=== PATIENT | female | born 1975 | race American Indian/Alaskan Native ===

== ENCOUNTER 2020-11-20 15:16 | Emergency (ER) | payer BC ==
[2020-11-20] MEDS ORDERED: ACETAMINOPHEN 500 MG TAB PO ONE ×2 (17:18→22:30)
--- NOTE | 2020-11-20 17:21 | Event Note ---
ED Screening Note Date of service: 11/20/20 Time: 17:19 ED Screening Note: Patient is a A0 45-year-old -[place] female with past medical history of uterine fibroids who presents to the ED with complaint of acute onset persistent heavy vaginal bleeding and severe pelvic pain for the last 1 week, worse in the last 2 days. Patient states that she was initially evaluated by her [employer] physician Dr. Nixon who advised her to come to the ED for further evaluation due to heavy vaginal bleeding and pain. Patient denies dysuria, urinary frequency and urgency, vaginal discharge, nausea, vomiting, fever, chills, dysuria or diarrhea This initial assessment/diagnostic orders/clinical plan/treatment(s) is/are subject to change based on patients health status, clinical progression and re- assessment by fellow clinical providers in the ED. Further treatment and workup at subsequent clinical providers discretion. Patient/guardian urged not to elope from the ED as their condition may be serious if not clinically assessed and managed. Initial orders include: CBC, CMP, UA, hCG serum, pelvic ultrasound
[2020-11-20 17:40] LABS: Basophils # (Auto) 0.1 K/mm3 (0.0-0.1); Eosinophils # (Auto) 0.2 K/mm3 (0.0-0.4); Eosinophils % (Auto) 1.7 % (0.0-4.3); Hematocrit 30.6 % (30.3-42.9); Hemoglobin 10.2 gm/dl (10.1-14.3); Lymphocytes # (Auto) 2.2 K/mm3 (1.2-5.4); Lymphocytes % (Auto) 25.2 % (13.4-35.0); Mean Corpuscular HGB Conc 33 % (30-34); Mean Corpuscular Volume 89 fl (79-97); Monocytes # (Auto) 0.5 K/mm3 (0.0-0.8); Monocytes % (Auto) 5.7 % (0.0-7.3); Platelet Count 324 K/mm3 (140-440); Red Blood Count 3.43 M/mm3 (3.65-5.03); Red Cell Distribution Width 13.7 % (13.2-15.2)
[2020-11-20 18:01] LABS: Bacteria,Urine 1+ /HPF (Negative); Bilirubin,Urine NEG (Negative); Blood,Urine LG (Negative); Color,Urine Red (Yellow); Urobilinogen,Urine < 2.0 mg/dL (<2.0)
[2020-11-20 18:03] LABS: Alanine Aminotransferase 16 units/L (7-56); Blood Urea Nitrogen 11 mg/dL (7-17); Hemolysis Index 11
[2020-11-20 18:15] LABS: RBC,Urine > 182.0 /HPF (0.0-6.0)
[2020-11-20 18:18] LABS: BUN/Creatinine Ratio 16
--- NOTE | 2020-11-20 20:33 | Ultrasound Report ---
ULTRASOUND PELVIS INDICATION / CLINICAL INFORMATION: Pelvic pain - vagina bleeding. TECHNIQUE: Transabdominal. Duplex Color Doppler used: Yes. COMPARISON: None available FINDINGS: Technically difficult examination secondary to overlying bowel. UTERUS: Measures 12.4 x 7.3 x 7.8 cm. Accurate endometrial thickness is unable to be obtained on this examination. Multiple heterogeneously echogenic foci are visualized at the uterine fundus measuring up to 5.8 cm. RIGHT ADNEXA: No significant ovarian cyst or mass. Normal color Doppler blood flow. LEFT ADNEXA: No significant ovarian cyst or mass. Normal color Doppler blood flow. URINARY BLADDER: No significant abnormality. FREE FLUID: None. ADDITIONAL FINDINGS: None. IMPRESSION: 1. Mildly enlarged uterus with multiple uterine fibroids. No acute abnormality. 2. Endometrium was difficult to visualize on today's examination. Signer Name: Coy Vivas MD Signed: 11/20/2020 8:28 PM Workstation Name: [id number]
--- NOTE | 2020-11-20 21:39 | Emergency Department Report ---
ED General Adult HPI - General Chief complaint: Urogenital-Female Stated complaint: HEAVY BLEEDING Time Seen by Provider: 11/20/20 21:37 Source: patient Mode of arrival: Ambulatory Limitations: No Limitations - History of Present Illness Initial comments: 45-year-old female patient with history of endometriosis and uterine fibroids status post myomectomy presents to the emergency department with complaints of painful vaginal bleeding for 2 days. Her last menstrual cycle was 1 month ago. States she has used approximately 7 tampons in the last 12 hours. Patient has been experiencing ongoing issues with menorrhagia. She was prescribed Orilissa by her alarm security or surveillance monitor, but did not take the medication due to concern about possible side effects. She contacted her alarm security or surveillance monitor today, recommended she come to the emergency department for further evaluation. No recent fall, trauma, or injury. Patient is not anticoagulated. Patient is not . Denies fever, chills, nausea, vomiting, diarrhea, constipation, painful urination, chest pain, shortness of breath, syncope, dizziness. Denies all other complaints at this time. - Related Data Home Medications Medication Instructions Recorded Confirmed Last Taken Multivitamin Tab [Multiple Vitamin 1 each PO QDAY 09/10/15 09/10/15 Unknown TAB (Theragran)] lisinopriL [Lisinopril] 10 mg PO DAILY 09/10/15 09/10/15 Unknown Previous Rx's Medication Instructions Recorded Last Taken Type Aspirin EC [Aspirin Enteric Coated 325 mg PO QDAY #30 tablet. 06/17/14 Unknown Rx TAB] carvediloL [Coreg] 6.25 mg PO BID #60 tablet 06/17/14 Unknown Rx Naproxen 500 mg PO BID #20 tablet 11/20/20 Unknown Rx Allergies Allergy/AdvReac Type Severity Reaction Status Date / Time lisinopril Allergy Swelling Verified 11/20/20 17:12 ED Review of Systems ROS: Stated complaint: HEAVY BLEEDING Other details as noted in HPI Other: GENERAL: Negative for fever, chills, weight change, anorexia, fatigue. ENT: Negative for ear pain, difficulty hearing, sore throat, nasal congestion, epistaxis. CARDIOVASCULAR: Negative for chest pain, palpitations, lower extremity swelling. PULMONARY: Negative for cough, dyspnea, wheezing, orthopnea, cyanosis. GASTROINTESTINAL: Negative for abdominal pain, nausea, vomiting, diarrhea, constipation. GENITOURINARY: Positive for pelvic pain and vaginal bleeding. MUSCULOSKELETAL: Negative for joint pain, joint swelling, myalgias, back pain, neck pain. NEUROLOGICAL: Negative for headache, seizure, syncope, paresthesias, weakness. INTEGUMENTARY: Negative for erythema, rash, diaphoresis, laceration, ecchymosis. HEMATOLOGICAL: Negative for hemoptysis, hematemesis, hematochezia, hematuria. PSYCHIATRIC: Negative for hallucinations, suicidal ideation, homicidal ideation, anxiety, depression. ED Past Medical Hx - Past Medical History Hx Hypertension: Yes (x 1 year) Hx Congestive Heart Failure: Yes Hx Diabetes: Yes (GESTATIONAL) Hx Deep Vein Thrombosis: No Hx Renal Disease: No Hx Sickle Cell Disease: No Hx Seizures: No Hx Asthma: No Hx COPD: No Hx HIV: No - Surgical History Additional Surgical History: Biliary Atresia Surgery 1973, 1974, 2003 ,2005. LAPROSCOPY. MYOMECTOMY - Social History Smoking Status: Never Smoker Substance Use Type: None - Medications Home Medications: Home Medications Medication Instructions Recorded Confirmed Last Taken Type Aspirin EC [Aspirin Enteric Coated 325 mg PO QDAY #30 tablet. 06/17/14 Unknown Rx TAB] carvediloL [Coreg] 6.25 mg PO BID #60 tablet 06/17/14 09/10/15 Unknown Rx Multivitamin Tab [Multiple Vitamin 1 each PO QDAY 09/10/15 09/10/15 Unknown History TAB (Theragran)] lisinopriL [Lisinopril] 10 mg PO DAILY 09/10/15 09/10/15 Unknown History Naproxen 500 mg PO BID #20 tablet 11/20/20 Unknown Rx ED Physical Exam - General Limitations: No Limitations - Other Other exam information: General: Awake and alert. No acute distress. Head: Atraumatic, normocephalic. Eyes: EOMI. Pupils are equal and round. Normal sclera and conjunctiva. ENT: Oral mucosa is moist. Normal pharyngeal exam. Neck: Supple. No lymphadenopathy. Pulmonary: No respiratory distress. Clear to auscultation bilaterally. Cardiac: Regular rate and rhythm. Pulses are palpable and equal bilaterally. No lower extremity cyanosis or edema. Skin: Warm and dry. No rashes. Abdomen: Soft, non-tender, non-protuberant. No guarding, rigidity, or rebound. Bowel sounds are normal. No organomegaly or masses noted. Back: Normal alignment. No CVA tenderness. Extremities: Symmetrical. Full range of motion intact. Neurological: Alert and oriented, appropriately interactive, no focal deficits. Psych: Cooperative. Appropriate mood and affect. Speech is evenly metered. Thoughts are logically construed. ED Course Vital Signs 11/20/20 17:15 Temperature 98.3 F Pulse Rate 76 Respiratory 18 Rate Blood Pressure 141/75 O2 Sat by Pulse 96 Oximetry ED Medical Decision Making - Lab Data Result diagrams: 11/20/20 17:36 11/20/20 17:36 - Radiology Data [facility] [address] [place] [address] Ultrasound Report Signed Patient: PALOMO MYERS MR#: [id number] : 1975 Acct:[id number] Age/Sex: 45 / F ADM Date: 11/20/20 Loc: ED Attending Dr: Ordering Physician: ADRIENNE POZO Date of Service: 11/20/20 Procedure(s): US pelvic complete Accession Number(s): [id number] cc: ADRIENNE POZO ULTRASOUND PELVIS INDICATION / CLINICAL INFORMATION: Pelvic pain - vagina bleeding. TECHNIQUE: Transabdominal. Duplex Color Doppler used: Yes. COMPARISON: None available FINDINGS: Technically difficult examination secondary to overlying bowel. UTERUS: Measures 12.4 x 7.3 x 7.8 cm. Accurate endometrial thickness is unable to be obtained on this examination. Multiple heterogeneously echogenic foci are visualized at the uterine fundus measuring up to 5.8 cm. RIGHT ADNEXA: No significant ovarian cyst or mass. Normal color Doppler blood flow. LEFT ADNEXA: No significant ovarian cyst or mass. Normal color Doppler blood flow. URINARY BLADDER: No significant abnormality. FREE FLUID: None. ADDITIONAL FINDINGS: None. IMPRESSION: 1. Mildly enlarged uterus with multiple uterine fibroids. No acute abnormality. 2. Endometrium was difficult to visualize on today's examination. Signer Name: Jean Vivas MD Signed: 11/20/2020 8:28 PM Workstation Name: [id number] Transcribed By: Dictated By: JEAN VIVAS III Electronically Authenticated By: JEAN VIVAS III Signed Date/Time: 11/20/202027 DD/ 25 TD/TT: - Medical Decision Making Differential diagnosis including but not limited to: ectopic , hemorrhagic shock, anemia, uterine fibroids, endometriosis On reevaluation, patient remains stable. Vital signs within normal limits. Hemoglobin is stable. Urine specimen shows hematuria without evidence of concomitant infection. Pelvic ultrasound obtained during medical screening exam shows multiple uterine fibroids. test is negative. There is no clinical indication for further diagnostic work-up on an emergent basis at this time. Patient will be discharged home with appropriate analgesics to follow-up with her alarm security or surveillance monitor as previously scheduled. Patient expressed understanding and is agreeable to plan of care. Strict return precautions provided. Repeat exam is unremarkable and benign. History, exam, diagnostic testing, and current condition do not suggest worrisome pathology to warrant further testing, continued ED treatment, admission, or surgical evaluation at this point. Given the low probability of a significant medical illness, it would be more likely to result in harm than benefit to perform further testing at this stage. Discussed findings, presumptive diagnosis, need for follow-up and specific signs/symptoms that should prompt immediate return to the emergency department. Instructions were explained in detail to the patient in addition to giving written discharge information. Patient expressed understanding and was given the opportunity to a sk questions, all of which were satisfactorily answered prior to discharge home. Critical care attestation.: If time is entered above; I have spent that time in minutes in the direct care of this critically ill patient, excluding procedure time. ED Disposition Clinical Impression: Uterine fibroid Qualifiers: Uterine leiomyoma location: unspecified location Qualified Code(s): D25.9 - Leiomyoma of uterus, unspecified Disposition: DC- TO HOME OR SELFCARE Is pt being admited?: No Does the pt Need Aspirin: No Condition: Stable Instructions: Uterine Fibroids, [id number] Additional Instructions: Take Tylenol every 4 hours as needed for pain. Take Naprosyn twice daily with food as needed for pain. Apply heat to affected area as needed for pain. Rest. Drink plenty of fluids. Follow-up with your alarm security or surveillance monitor next week. Call Monday to schedule an appointment. Return to the emergency department immediately for new or worsening symptoms. Specifically, return to the emergency department immediately for fever, vomiting, worsening pain, increased bleeding, chest pain, shortness of breath, dizziness, palpitations, or any other concerns. Prescriptions: Naproxen 500 mg PO BID #20 tablet Referrals: AMANDA REVELES MD [Primary Care Provider] - 3-5 Days Time of Disposition: 21:55
[2020-11-20 22:36] VITALS: BP 136/78
== END 2020-11-20 22:37 | disposition home or self-care (01) ==
LOC: ED 15:16
DX: D25.9 Leiomyoma of uterus, unspecified (principal); I11.0 Hypertensive heart disease with heart failure; I50.9 Heart failure, unspecified; E11.9 Type 2 diabetes mellitus without complications; Z88.8 Allergy status to other drugs, medicaments and biological substances; Z79.899 Other long term (current) drug therapy; Z98.890 Other specified postprocedural states
CPT/HCPCS: 36415; 76856; 80053; 81001; 84703; 85025; 87086